=== PATIENT | female | born 1980 | race Caucasian/White ===

== ENCOUNTER 2022-07-20 18:43 | Emergency (ER) | payer BC ==
[2022-07-20] MEDS ORDERED: PROMETHAZINE 25 MG TABLET ONE (19:43)
[2022-07-20] MEDS ORDERED: CYCLOBENZAPRINE 10 MG TAB ONE (19:43)
[2022-07-20] MEDS ORDERED: FLUCONAZOLE 100 MG TAB ONE (19:43)
[2022-07-20] MEDS ORDERED: HYDROCODONE/APAP 10/325 TAB ONE (19:44)
[2022-07-20] MEDS ORDERED: IBUPROFEN 400 MG TAB ONE (19:44)
[2022-07-20 19:48] LABS: Specific Gravity 1.042 (1.005-1.030)
[2022-07-20 19:53] LABS: Specific Gravity > 1.030 (1.005-1.030); Urine Bacteria 20-50 /HPF (<20); Urine Bilirubin NEGATIVE (Negative); Urine Blood Trace (Negative); Urine Clarity Clear (Clear); Urine Color Light-Yellow (Yellow); Urine Glucose 4+ (Over) (Negative); Urine Protein TRACE (Negative); Urine RBC 21-50 /HPF (None Seen); Urine Urobilinogen Normal (Normal); Urine WBC Clump Occasional /HPF (None Seen)
--- NOTE | 2022-07-20 19:56 | RAD REPORT ---
EXAM DESCRIPTION: RAD - Hand Left 3 View - 07/20/2022 7:39 pm CLINICAL HISTORY: traumatic hand injury COMPARISON: No comparisons FINDINGS/IMPRESSION: Obliquely oriented fracture of the fourth metacarpal involving the diaphysis. T here is at most 1/4 shaft width of dorsal displacement.
--- NOTE | 2022-07-20 20:19 | RAD REPORT ---
EXAM DESCRIPTION: CT - Pelvis Wo Cont - 07/20/2022 8:02 pm CLINICAL HISTORY: pelvic pain from the fall COMPARISON: No comparisons FINDINGS: No pelvic or hip fractures identified. Both femoral heads are located. Mild degenerative c hanges are present at the sacroiliac joints. Facet hypertrophy is present L5-S1. No other focal degen erative changes are noted. Inguinal adenopathy is probably reactive. Normal appendix. Visualized mikie l, bladder, and adnexa is within normal limits for age. IMPRESSION: No pelvic or hip fracture identified. Inguinal adenopathy is likely reactive. Suggest clinical follow-up.
[2022-07-20] MEDS ORDERED: CEPHALEXIN 250 MG CAP ONE (20:39)
[2022-07-20 20:56] LABS: Hematocrit 40.1 % (36.0-45.0); Lymphocytes % 27.4 % (15.3-44.8); MCV 86.2 fL (80-100); MPV 7.5 fL (7.6-11.3); RBC Red Blood Cell Count 4.65 M/uL (3.86-4.86)
[2022-07-20 21:13] LABS: Albumin 3.1 g/dL (3.4-5.0); Bilirubin Total 0.3 mg/dL (0.2-1.0); Potassium 3.5 mEq/L (3.5-5.1); Protein, Total 6.9 g/dL (6.4-8.2)
--- NOTE | 2022-07-20 21:43 | ER ---
Nurse's Notes [facility] Name: Peri Crisostomo Age: 42 yrs Sex: Female : 1980 Arrival Date: 07/20/2022 Time: 18:43 Bed 7 Private MD: Diagnosis: New onset diabetes, diabetes mellitus type 2 uncontrolled, hyperglycemia, urinary tract infection, acute cystitis, acute vaginal and labial candidiasis, acute diabetic associated complications,;Left hand fourth metacarpal oblique fracture, acute fall, contusion pelvic bones, contusion buttocks, contusion left hand, Presentation: 07/20 19:25 Chief complaint: Patient states: c/o vaginal pain and left hand pain. pt denies vaginal as6 bleed and discharge. pt reports falling x2 in the past week. Coronavirus screen: At this time, the client does not indicate any symptoms associated with coronavirus-19. Ebola Screen: No symptoms or risks identified at this time. Initial Sepsis Screen: Does the patient meet any 2 criteria? No. Patient's initial sepsis screen is negative. Does the patient have a suspected source of infection? No. Patient's initial sepsis screen is negative. Risk Assessment: Do you want to hurt yourself or someone else? Patient reports no desire to harm self or others. Onset of symptoms was July 16, 2022. 19:25 Acuity: [place] 3 as6 19:25 Method Of Arrival: Ambulatory as6 Triage Assessment: 19:24 General: Appears uncomfortable, obese, Behavior is cooperative, crying. Pain: Complains as6 of pain in right labia majora, left labia majora, right labia minora, left labia minora and left hand. EENT: No deficits noted. No signs and/or symptoms were reported regarding the EENT system. Neuro: Level of Consciousness is awake, alert, obeys commands, Oriented to person, place, time, situation. Cardiovascular: Capillary refill < 3 seconds Patient's skin is warm and dry. Respiratory: Respiratory effort is even, unlabored, Respiratory pattern is regular, symmetrical. GI: No deficits noted. No signs and/or symptoms were reported involving the gastrointestinal system. : Reports burning with urination. 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 - Social history:: Smoking status: Patient reports the use of cigarette tobacco products, smokes one-half pack cigarettes per day. - Family history:: not pertinent. Screenin:53 [facility] ED Fall Risk Assessment (Adult) Score/Fall Risk Level 0 - 2 = Low Risk. Abuse as6 screen: Denies threats or abuse. Denies injuries from another. Nutritional screening: No deficits noted. Tuberculosis screening: No symptoms or risk factors identified. Assessment: 20:47 Reassessment: Patient appears in no apparent distress at this time. Patient states as6 feeling better. Patient states symptoms have improved. Vital Signs: 19:25 BP 153 / 79; Pulse 86; Resp 18 S; Temp 98(O); Pulse Ox 98% on R/A; Weight 92.99 kg (R); as6 Height 5 ft. 1 in. (R); Pain 8/10; 20:47 BP 145 / 85; Pulse 66; Resp 18 S; Pulse Ox 99% on R/A; as6 21:54 BP 133 / 106; Pulse 79; Resp 18 S; Pulse Ox 100% on R/A; as6 19:25 Body Mass Index 38.73 (92.99 kg, 154.94 cm) as6 19:25 Pain Scale: Adult as6 ED Course: 18:46 Patient arrived in ED. mr 19:03 Bang Lundberg MD is Attending Physician. sp4 19:13 Milton Cedeño, JAYCOB is Primary Nurse. as6 19:24 Arm band placed on. as6 19:28 Triage completed. as6 19:41 Hand Left 3 View XRAY In Process Unspecified. EDMS 19:41 PREGU Sent. as6 19:41 Urinalysis W/Microscopic Sent. as6 20:04 CT Pelvis wo Cont In Process Unspecified. EDMS 20:47 Inserted saline lock: 20 gauge in right antecubital area, using aseptic technique. as6 Blood collected. 21:41 Kobe French MD is Referral Physician. sp4 21:53 Bed in low position. Call light in reach. Side rails up X2. as6 21:53 No provider procedures requiring assistance completed. as6 22:03 IV discontinued, intact, bleeding controlled, No redness/swelling at site. Pressure as6 dressing applied. 22:04 Orthoglass splint: Volar splint applied on left arm. as6 Administered Medications: 19:41 Drug: [place] PO 10 mg-325 mg 1 tabs Route: PO; as6 21:53 Follow up: Response: No adverse reaction as6 19:41 Drug: Cyclobenzaprine PO 10 mg Route: PO; as6 21:53 Follow up: Response: No adverse reaction as6 19:41 Drug: Ibuprofen PO 800 mg Route: PO; as6 21:53 Follow up: Response: No adverse reaction as6 19:41 Drug: Promethazine PO 25 mg Route: PO; as6 21:52 Follow up: Response: No adverse reaction as6 19:41 Drug: Fluconazole PO 200 mg Route: PO; as6 21:52 Follow up: Response: No adverse reaction as6 20:47 Drug: Cephalexin PO 500 mg Route: PO; as6 21:52 Follow up: Response: No adverse reaction as6 Medication: 21:53 VIS not applicable for this client. as6 Outcome: 21:43 Discharge ordered by . sp4 21:54 Discharged to home ambulatory, with significant other. as6 21:54 Condition: stable 22:03 Discharge instructions given to patient, Instructed on discharge instructions, follow as6 up and referral plans. medication usage, Demonstrated understanding of instructions, follow-up care, medications, splint care, Prescriptions given X 5 22:04 Patient left the ED. as6 Signatures: Dispatcher [employer] Smita Aldrich Ashby, RN RN as6 Bang Lundberg MD MD sp4
--- NOTE | 2022-07-20 21:44 | EDPHYS ---
Physician Documentation [facility] Name: Peri Crisostomo Age: 42 yrs Sex: Female : 1980 Arrival Date: 07/20/2022 Time: 18:43 Bed 7 Private MD: ED Physician Bang Lundberg HPI: 07/20 19:03 This 42 yrs old Other Female presents to ER via Unassigned with complaints of Vaginal sp4 Pain, Fall Injury, Hand Pain. 19:11 42-year-old female presents with complaint of pain in the perineum and groin after her sp4 fall 5 days ago at work. Patient states she fell backwards via slipping on a wet floor and this has created pain in the groin and perineum. Patient states she landed on her buttock. Patient additionally states that she has sustained injury to the left hand and now left hand is swollen and painful. Patient has history of depression and anxiety. Patient is allergic to penicillin. Patient takes home medications. Celexa and propranolol for depression and anxiety.. 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 - Social history:: Smoking status: Patient reports the use of cigarette tobacco products, smokes one-half pack cigarettes per day. - Family history:: not pertinent. ROS: 19:11 Constitutional: Negative for fever, chills, and weight loss, Eyes: Negative for injury, sp4 pain, redness, and discharge, ENT: Negative for injury, pain, and discharge, Neck: Negative for injury, pain, and swelling, Cardiovascular: Negative for chest pain, palpitations, and edema, Respiratory: Negative for shortness of breath, cough, wheezing, and pleuritic chest pain, Abdomen/GI: Negative for abdominal pain, nausea, vomiting, diarrhea, and constipation, Back: Negative for injury and pain, : Negative for bleeding, discharge, and swelling, positive for perineal pain after a fall and associated pain in the groin MS/Extremity: Negative for deformity, positive for left hand pain and swelling. Positive for pain in the pelvis after a fall Skin: Negative for injury, rash, and discoloration, Neuro: Negative for headache, weakness, numbness, tingling, and seizure, Psych: Negative for depression, anxiety, Allergy/Immunology: Negative for hives, rash, and allergies Endocrine: Negative for neck swelling, polydipsia, polyuria, polyphagia, and weight changes Hematologic/Lymphatic: Negative for swollen nodes, abnormal bleeding, and unusual bruising Exam: 19:11 Constitutional: This is a well developed, well nourished patient who is awake, alert, sp4 and in no acute distress. Head/Face: Normocephalic, atraumatic. Eyes: Pupils equal round and reactive to light, extra-ocular motions intact. Lids and lashes normal. Conjunctiva and sclera are not injected. Cornea within normal limits. Periorbital areas with no swelling, redness, or edema. ENT: Nares patent. No nasal discharge, no septal abnormalities noted. Tympanic membranes are normal and external auditory canals are clear. Oropharynx with no redness, swelling, or masses, exudates, or evidence of obstruction, uvula midline. Mucous membranes moist. Neck: Trachea midline, no thyromegaly or masses palpated, and no cervical lymphadenopathy. Supple, full range of motion without nuchal rigidity, or vertebral point tenderness. No Meningismus. Chest/axilla: Normal chest wall appearance and motion. Nontender with no deformity. No lesions are appreciated. Cardiovascular: Regular rate and rhythm with a normal S1 and S2. No gallops, murmurs, or rubs. Normal PMI, no JVD. No pulse deficits. Respiratory: Lungs have equal breath sounds bilaterally, clear to auscultation and percussion. No rales, rhonchi or wheezes noted. No increased work of breathing, no retractions or nasal flaring. Abdomen/GI: Soft, non-tender, with normal bowel sounds. No distension or tympany. No guarding or rebound. No evidence of tenderness throughout. Back: No spinal tenderness. No costovertebral tenderness. Skin: Warm, dry with normal turgor. Normal color with no rashes, no lesions, and no evidence of cellulitis. MS/ Extremity: Pulses equal, no cyanosis. Neurovascular intact. Full, normal range of motion. Left hand mild swelling, normal range of motion, normal cap refill, no deformity Neuro: Awake and alert, GCS 15, oriented to person, place, time, and situation. Cranial nerves II-XII grossly intact. Motor strength 5/5 in all extremities. Sensory grossly intact. Psych: Awake, alert, with orientation to person, place and time. Behavior, mood, and affect are within normal limits Vital Signs: 19:25 BP 153 / 79; Pulse 86; Resp 18 S; Temp 98(O); Pulse Ox 98% on R/A; Weight 92.99 kg (R); as6 Height 5 ft. 1 in. (R); Pain 8/10; 20:47 BP 145 / 85; Pulse 66; Resp 18 S; Pulse Ox 99% on R/A; as6 21:54 BP 133 / 106; Pulse 79; Resp 18 S; Pulse Ox 100% on R/A; as6 19:25 Body Mass Index 38.73 (92.99 kg, 154.94 cm) as6 19:25 Pain Scale: Adult as6 Procedures: 21:33 Splinting: Splint applied to left wrist, left hand and palmar aspect of left forearm sp4 using Orthoglass splint, sling, Left hand wrist and forearm ulnar gutter applied for left fourth metacarpal oblique fracture. applied by myself. post reduction film - Nondisplaced fracture repeat x-ray not indicated, Examined by me, post splint application: neurovascular intact, 2+ distal pulses palpable, brisk capillary refill noted, Normal neurovascular status after the splint. Patient tolerated well, Left arm sling will be applied. MDM: 19:10 Patient medically screened. sp4 21:33 Differential diagnosis: nonspecific abdominal pain, urinary tract infection, vaginosis. sp4 Data reviewed: vital signs, nurses notes, lab test result(s), CBC, electrolytes, hepatic panel, radiologic studies, CT scan, plain films. Consideration of Admission/Observation Escalation of care including admission/observation considered. ED course: In order of priority #1 patient presents with signs of vaginal candidiasis and UTI with glucose in the urine,. Blood sugar and chemistry panel suggest new onset diabetes not previously diagnosed. Without nephropathy. Patient will be advised on diabetic diet, and prescribed metformin and glipizide for daily blood sugar management. Will advise blood sugar checks every day every morning/every evening. Patient will require follow-up with primary MD for diabetes management also yearly ophthalmologic dilated exam. Patient advised to consume strict diabetic diet. ED course: Secondary problem includes acute onset urinary tract infection based on urinalysis also based on vaginal exam there is pelvic/vaginal labial candidiasis associated with diabetes. Patient will be prescribed Keflex and Diflucan for management of UTI and candidiasis. ED course: Secondary problem also includes acute contusion of pelvic area after the fall 6 days ago and also a left hand contusion and left fourth metacarpal oblique fracture of the left fourth metacarpal shaft. Left hand forearm splint was applied via ulnar gutter fiberglass splint and arm sling provided, patient will be referred to orthopedist within the next 7 to 14 days for repeat x-ray and full cast . ED course: . 07/20 19:23 Order name: Urinalysis W/Microscopic; Complete Time: 20:11 sp4 07/20 19:29 Order name: PREGU; Complete Time: 20:11 as6 07/20 20:07 Order name: Urine Culture EDMS 07/20 20:14 Order name: CBC with Diff; Complete Time: 21:04 sp4 07/20 20:14 Order name: CMP; Complete Time: 21:14 sp4 07/20 20:57 Order name: Glucose, Ancillary Testing; Complete Time: 21:02 EDMS 07/20 19:10 Order name: CT Pelvis wo Cont; Complete Time: 20:36 sp4 07/20 19:10 Order name: Hand Left 3 View XRAY; Complete Time: 20:11 sp4 07/20 20:11 Order name: Accucheck Blood Glucose; Complete Time: 20:47 sp4 Administered Medications: 19:41 Drug: [place] PO 10 mg-325 mg 1 tabs Route: PO; as6 21:53 Follow up: Response: No adverse reaction as6 19:41 Drug: Cyclobenzaprine PO 10 mg Route: PO; as6 21:53 Follow up: Response: No adverse reaction as6 19:41 Drug: Ibuprofen PO 800 mg Route: PO; as6 21:53 Follow up: Response: No adverse reaction as6 19:41 Drug: Promethazine PO 25 mg Route: PO; as6 21:52 Follow up: Response: No adverse reaction as6 19:41 Drug: Fluconazole PO 200 mg Route: PO; as6 21:52 Follow up: Response: No adverse reaction as6 20:47 Drug: Cephalexin PO 500 mg Route: PO; as6 21:52 Follow up: Response: No adverse reaction as6 Disposition Summary: 07/20/22 21:43 Discharge Ordered Location: Home sp4 Problem: new sp4 Symptoms: have improved sp4 Condition: Stable sp4 Diagnosis - New onset diabetes, diabetes mellitus type 2 uncontrolled, hyperglycemia, urinary sp4 tract infection, acute cystitis, acute vaginal and labial candidiasis, acute diabetic associated complications, - Left hand fourth metacarpal oblique fracture, acute fall, contusion pelvic bones, sp4 contusion buttocks, contusion left hand, Followup: sp4 - With: Kobe French MD - When: 7 - 10 days - Reason: Recheck today's complaints Discharge Instructions: - Discharge Summary Sheet sp4 - Hand Contusion sp4 - Diabetes Mellitus Basics sp4 Forms: - Thank You Letter sp4 - Antibiotic Education sp4 Prescriptions: - Cephalexin 500 mg Oral Capsule - take 1 capsule by ORAL route every 12 hours for 10 days; 20 capsule; Refills: sp4 0, Product Selection Permitted - Fluconazole 200 mg Oral Tablet - take 1 tablet by ORAL route once daily; 10 tablet; Refills: 0, Product sp4 Selection Permitted - Glipizide 5 mg Oral Tablet - take 1 tablet by ORAL route once daily before a meal; 30 tablet; Refills: 0, sp4 Product Selection Permitted - Metformin 1,000 mg Oral Tablet - take 1 tablet by ORAL route every 12 hours with morning and evening meals; 60 sp4 tablet; Refills: 0, Product Selection Permitted - Tramadol 50 mg Oral Tablet - take 1 tablet by ORAL route every 8 hours as needed; 30 tablet; Refills: 0, sp4 Product Selection Permitted Signatures: Dispatcher [employer] Milton Brown RN RN as6 Bang Lundberg MD MD sp4
[2022-07-20 22:36] VITALS: TEMP 98
[2022-07-20 22:39] VITALS: BP 133/106; O2SAT 100
== END 2022-07-20 22:04 | disposition home or self-care (01) ==
LOC: ER 18:43
PROC: 2W3DX1Z Immobilization of Left Lower Arm using Splint (ICD-10-PCS; principal; 2022-07-20)
DX: S62.395A Other fracture of fourth metacarpal bone, left hand, initial encounter for closed fracture (principal); S30.0XXA Contusion of lower back and pelvis, initial encounter; S60.222A Contusion of left hand, initial encounter; W19.XXXA Unspecified fall, initial encounter; E11.65 Type 2 diabetes mellitus with hyperglycemia; N39.0 Urinary tract infection, site not specified; B37.31 Acute candidiasis of vulva and vagina; F17.210 Nicotine dependence, cigarettes, uncomplicated; Z88.0 Allergy status to penicillin
CPT/HCPCS: 87088; 85025; 81001; 87086; 36415; 81025; 82947; 80053; 72192; 73130; 99284; 29125; Q0169

== ENCOUNTER 2022-09-11 18:25 | Observation (INO) | payer BC ==
--- NOTE | 2022-09-11 19:59 | ER ---
Nurse's Notes [facility] Name: Peri Crisostomo Age: 42 yrs Sex: Female : 1980 Arrival Date: 09/11/2022 Time: 18:25 Bed 14 Private MD: Diagnosis: Left Breast Abscess Presentation: 09/11 18:36 Chief complaint: Patient states: boil under left breast. Patient states that she cm10 noticed it a few days ago. Denies fevers. Coronavirus screen: Vaccine status: Patient reports being unvaccinated. Client denies travel out of the [place] in the last 14 days. At this time, the client does not indicate any symptoms associated with coronavirus-19. Ebola Screen: No symptoms or risks identified at this time. Initial Sepsis Screen: Does the patient meet any 2 criteria? No. Patient's initial sepsis screen is negative. Does the patient have a suspected source of infection? Yes: Skin breakdown/wound. Risk Assessment: Do you want to hurt yourself or someone else? Patient reports no desire to harm self or others. Onset of symptoms is unknown. 18:36 Method Of Arrival: Ambulatory cm10 18:36 Acuity: [place] 4 cm10 Triage Assessment: 18:39 General: Appears in no apparent distress. Behavior is calm, cooperative. Neuro: No cm10 deficits noted. Level of Consciousness is awake, alert, Oriented to person, place, time, situation. Respiratory: No deficits noted. Airway is patent Respiratory effort is even, unlabored, Respiratory pattern is regular, symmetrical. Historical: - Allergies: 18:38 PENICILLINS; cm10 - PMHx: 18:38 Anxiety; cm10 - PSHx: 18:38 wisdom teeth; cm10 - Immunization history:: Adult Immunizations unknown. - Social history:: Smoking status: Patient reports the use of cigarette tobacco products, denies chronic smoking, but will smoke occasionally. Screenin:41 [facility] ED Fall Risk Assessment (Adult) Score/Fall Risk Level 0 - 2 = Low Risk ll1 Oriented to surroundings, Maintained a safe environment, Educated pt \T\ family on fall prevention, incl call for assistance when getting out of bed, Hourly rounding (assess needs \T\ fall precautionary measures) done. Abuse screen: Denies threats or abuse. Nutritional screening: No deficits noted. Tuberculosis screening: No symptoms or risk factors identified. Assessment: 18:41 Reassessment: No changes from previously documented assessment. Patient and/or family ll1 updated on plan of care and expected duration. Pain level reassessed. Patient is alert, oriented x 3, equal unlabored respirations, skin warm/dry/pink. 20:00 Pain: Complains of pain in left breast. Neuro: No deficits noted. Level of pf1 Consciousness is awake, alert, obeys commands, Oriented to person, place, time, situation. Cardiovascular: No deficits noted. Capillary refill < 3 seconds Patient's skin is warm and dry. Respiratory: No deficits noted. Airway is patent Respiratory effort is even, unlabored, Respiratory pattern is regular, symmetrical, Breath sounds are clear bilaterally. GI: No deficits noted. No signs and/or symptoms were reported involving the gastrointestinal system. Abdomen is round non-distended. : No deficits noted. No signs and/or symptoms were reported regarding the genitourinary system. EENT: No deficits noted. No signs and/or symptoms were reported regarding the EENT system. Derm: Abscess located on left breast is red. 20:00 General: General: Appears in no apparent distress. comfortable, well groomed, well pf1 developed, Behavior is calm, cooperative, appropriate for age, quiet. 21:00 Reassessment: Patient appears in no apparent distress at this time. Patient and/or pf1 family updated on plan of care and expected duration. Pain level reassessed. Patient is alert, oriented x 3, equal unlabored respirations, skin warm/dry/pink. Patient states symptoms have not improved. 22:00 Reassessment: Patient appears in no apparent distress at this time. Patient and/or pf1 family updated on plan of care and expected duration. Pain level reassessed. Patient is alert, oriented x 3, equal unlabored respirations, skin warm/dry/pink. Patient states symptoms have improved. Vital Signs: 18:36 BP 131 / 107; Pulse 90; Resp 16; Temp 97.9; Pulse Ox 97% on R/A; Weight 90.72 kg; cm10 Height 5 ft. 1 in. ; Pain 2/10; 21:00 BP 114 / 86; Pulse 82; Resp 18; Pulse Ox 99% on R/A; pf1 22:00 BP 121 / 67; Pulse 76; Resp 18; Temp 97.8; Pulse Ox 98% on R/A; Pain 4/10; pf1 18:36 Body Mass Index 37.79 (90.72 kg, 154.94 cm) cm10 18:36 Pain Scale: Adult cm10 22:00 Pain Scale: Adult pf1 ED Course: 18:29 Patient arrived in ED. mr 18:38 Triage completed. cm10 18:39 Arm band placed on. cm10 18:40 Patient placed in an exam room, on a stretcher. ll1 18:41 Patient has correct armband on for positive identification. Bed in low position. Call ll1 light in reach. Cardiac monitoring not applicable on this patient. 18:47 Raza Oshea PA is PHCP. jmm 18:48 Toribio Christian MD is Attending Physician. jmm 19:58 Francisco Zuleta MD is Hospitalizing Provider. jmm 20:53 Initial lab(s) drawn, by me, sent to lab. First set of blood cultures drawn by ED staff.jw7 20:56 Inserted saline lock: 22 gauge in right hand, using aseptic technique. Missed jw7 attempt(s): 20 gauge in right antecubital area. Bleeding controlled, band aid applied, catheter tip intact. 20:57 Lactate w/ 2H reflex if indic. Sent. jw7 20:57 CMP Sent. jw7 20:57 CBC with Diff Sent. jw7 21:33 Inserted saline lock: 22 gauge in left antecubital area, using aseptic technique. vc1 22:03 Blood Culture Adult (2) Sent. pf1 22:15 No provider procedures requiring assistance completed. pf1 22:16 Patient admitted, IV remains in place. pf1 Administered Medications: 22:02 Drug: Ondansetron IVP 4 mg Route: IVP; Site: right hand; pf1 22:16 Follow up: Response: No adverse reaction; Marked relief of symptoms pf1 22:03 Drug: vancoMYCIN IVPB 1 grams Route: IVPB; Infused Over: 2 hrs; Site: right hand; pf1 22:16 Follow up: Response: No adverse reaction; Marked relief of symptoms; IV Status: pf1 Infusion continued upon admission 22:03 Drug: morphine IVP or IV 2 mg Route: IVP; Infused Over: 4 mins; Site: right hand; pf1 22:16 Follow up: Response: No adverse reaction; Marked relief of symptoms; Pain is decreased; pf1 RASS: Alert and Calm (0) Medication: 18:41 VIS not applicable for this client. ll1 Outcome: 19:58 Decision to Hospitalize by Provider. barbra 22:16 Admitted to Med/surg via wheelchair, room 212, with chart, Report called to JAYCOB Molina pf1 22:16 Condition: stable 22:16 Instructed on the need for admit, Demonstrated understanding of instructions. 22:16 Patient left the ED. pf1 Signatures: Raza Oshea PA PA jmm James, Smita BonillaYonis, RN RN ll1 Kiki Juarez RN RN vc1 Mariana Milian jw7 Richa Lewis RN RN pf1 Elsie Zuleta RN RN cm10 Corrections: (The following items were deleted from the chart) 22:16 22:15 Admitted to Med/surg via wheelchair, pf1 pf1 09/12 02:44 02:42 General: pf1 pf1 02:45 09/11 20:00 General: Appears in no apparent distress. comfortable, well groomed, well pf1 developed, Behavior is calm, cooperative, appropriate for age, quiet, General: Appears in no apparent distress. comfortable, well groomed, well developed, Behavior is calm, cooperative, appropriate for age, quiet, pf1
--- NOTE | 2022-09-11 19:59 | EDPHYS ---
Physician Documentation [facility] Name: Peri Crisostomo Age: 42 yrs Sex: Female : 1980 Arrival Date: 09/11/2022 Time: 18:25 Bed 14 Private MD: ED Physician Toribio Christian HPI: 09/11 18:56 This 42 yrs old Female presents to ER via Ambulatory with complaints of Breast Problem. jmm 18:56 The patient presents with an abscess of the left breast. Onset: The symptoms/episode jmm began/occurred gradually, 3 day(s) ago. Possible cause(s): unknown. Associated signs and symptoms: Pertinent positives: discharge, drainage, erythema, Pertinent negatives: fever. Modifying factors: the symptoms are alleviated by nothing, the symptoms are aggravated by nothing. This is a 42 year old female with a history of anxiety that presents to the ED with complaints of pain to her left breast with drainage. Denies fever, chills. . Historical: - Allergies: 18:38 PENICILLINS; cm10 - PMHx: 18:38 Anxiety; cm10 - PSHx: 18:38 wisdom teeth; cm10 - Immunization history:: Adult Immunizations unknown. - Social history:: Smoking status: Patient reports the use of cigarette tobacco products, denies chronic smoking, but will smoke occasionally. ROS: 18:56 Constitutional: Negative for fever, chills, and weight loss, Cardiovascular: Negative jmm for chest pain, palpitations, and edema, Respiratory: Negative for shortness of breath, cough, wheezing, and pleuritic chest pain. 18:56 Skin: Positive for abscess. 18:56 All other systems are negative. Exam: 18:56 Constitutional: This is a well developed, well nourished patient who is awake, alert, jmm and in no acute distress. Head/Face: atraumatic. Eyes: EOMI, no conjunctival erythema appreciated ENT: Moist Mucus Membranes Neck: Trachea midline, Supple Chest/axilla: Normal chest wall appearance and motion. Cardiovascular: Regular rate and rhythm. No edema appreciated Respiratory: Normal respirations, no respiratory distress appreciated Abdomen/GI: Non distended Back: Normal ROM 18:56 MS/ Extremity: Moves all extremities, no obvious deformities appreciated, no edema noted to the lower extremities Neuro: Awake and alert Psych: Behavior is normal, Mood is normal, Patient is cooperative and pleasant 18:56 Skin: abscess, that is moderate sized, of the left breast. Vital Signs: 18:36 BP 131 / 107; Pulse 90; Resp 16; Temp 97.9; Pulse Ox 97% on R/A; Weight 90.72 kg; cm10 Height 5 ft. 1 in. ; Pain 2/10; 21:00 BP 114 / 86; Pulse 82; Resp 18; Pulse Ox 99% on R/A; pf1 22:00 BP 121 / 67; Pulse 76; Resp 18; Temp 97.8; Pulse Ox 98% on R/A; Pain 4/10; pf1 18:36 Body Mass Index 37.79 (90.72 kg, 154.94 cm) cm10 18:36 Pain Scale: Adult cm10 22:00 Pain Scale: Adult pf1 MDM: 18:56 Patient medically screened. [facility] 21:26 Differential diagnosis: abscess, cellulitis. Data reviewed: vital signs, nurses notes. [facility] Consideration of Admission/Observation Patient was admitted/placed on observation. Escalation of care including admission/observation considered. Management of patient was discussed with the following: Sound Technician Supervisor: Dr. Zuleta. Counseling: I had a detailed discussion with the patient and/or guardian regarding: the historical points, exam findings, and any diagnostic results supporting the discharge/admit diagnosis, lab results, the need for further work-up and treatment in the hospital. ED course: I discussed the patient with Dr. Zuleta who recommends that the patient also needs a biopsy. Patient has a preference to stay in the hospital for or I\T\D with biopsy. Dr. Zuleta excepted the patient to his service.. 09/11 19:56 Order name: CBC with Diff; Complete Time: 21:28 [facility] 09/11 19:56 Order name: CMP; Complete Time: 21:24 [facility] 09/11 19:56 Order name: Lactate w/ 2H reflex if indic.; Complete Time: 21:24 [facility] 09/11 19:57 Order name: Blood Culture Adult (2) [facility] 09/11 19:56 Order name: Saline Lock; Complete Time: 20:57 [facility] Administered Medications: 22:02 Drug: Ondansetron IVP 4 mg Route: IVP; Site: right hand; pf1 22:16 Follow up: Response: No adverse reaction; Marked relief of symptoms pf1 22:03 Drug: vancoMYCIN IVPB 1 grams Route: IVPB; Infused Over: 2 hrs; Site: right hand; pf1 22:16 Follow up: Response: No adverse reaction; Marked relief of symptoms; IV Status: pf1 Infusion continued upon admission 22:03 Drug: morphine IVP or IV 2 mg Route: IVP; Infused Over: 4 mins; Site: right hand; pf1 22:16 Follow up: Response: No adverse reaction; Marked relief of symptoms; Pain is decreased; pf1 RASS: Alert and Calm (0) Disposition: 09/12 10:01 Co-signature as Attending Physician, Toribio Christian MD I reviewed the patient's care rt provided by the Advanced Practice Provider and agree with the diagnosis and treatment plan. Disposition Summary: 09/11/22 19:58 Hospitalization Ordered Hospitalization Status: Observation [facility] Provider: Francisco Zuleta Location: Telemetry/MedSurg (observation) jm Condition: Stable jm Problem: new jmm Symptoms: are unchanged [facility] Bed/Room Type: Standard [facility] Room Assignment: 212(09/11/22 20:44) Diagnosis - Left Breast Abscess [facility] Forms: - Medication Reconciliation Form jmm - SBAR form [facility] Signatures: Dispatcher [employer] EDMS Raza Oshea PA PA jmm Garcia, Cindy, RN RN Toribio Christian MD MD rt Richa Lewis RN RN pf1 Elsie Zuleta RN RN cm10 Corrections: (The following items were deleted from the chart) 09/11 20:44 19:58 [facility] cg
[2022-09-11] MEDS ORDERED: ONDANSETRON 4 MG/2 ML VIAL IV PRN (20:01)
[2022-09-11] MEDS ORDERED: ACETAMINOPHEN 500 MG TAB PO PRN (20:01)
[2022-09-11] MEDS ORDERED: MORPHINE 2 MG/ML SYR IV PRN (20:01)
[2022-09-11] MEDS ORDERED: ONDANSETRON 4 MG/2 ML VIAL ONE (20:34)
[2022-09-11] MEDS ORDERED: MORPHINE 2 MG/ML SYR ONE (20:34)
[2022-09-11] MEDS ORDERED: VANCOMYCIN 1 GM/VIAL ONE (20:34)
[2022-09-11] MEDS ORDERED: NA CHLORIDE 0.9% 250 ML ONE (20:35)
[2022-09-11] MEDS ORDERED: VANCOMYCIN 1 GM in NA CHLORIDE 0.9% 250 ML IVPB SCH (21:00)
[2022-09-11 21:22] LABS: Albumin 3.3 g/dL (3.4-5.0); Bilirubin Total 0.3 mg/dL (0.2-1.0); Potassium 3.6 mEq/L (3.5-5.1); Protein, Total 7.2 g/dL (6.4-8.2)
[2022-09-11 21:26] LABS: Absolute Lymphocytes (CBC) 2.9 K/uL (0.7-4.9); Hematocrit 41.8 % (36.0-45.0); Lymphocytes % 27.8 % (15.3-44.8); MCV 86.9 fL (80-100); MPV 8.2 fL (7.6-11.3); RBC Red Blood Cell Count 4.81 M/uL (3.86-4.86)
[2022-09-11] MEDS ORDERED: VANCOMYCIN 1.5 GM in NA CHLORIDE 0.9% 500 ML IVPB SCH (22:00)
[2022-09-11 23:31] VITALS: BMI 40.2
[2022-09-11] MEDS: NA CHLORIDE 0.9% 1,000 ML IV SCH (23:36)
[2022-09-12 03:21] LABS: Absolute Lymphocytes (CBC) 2.4 K/uL (0.7-4.9); Hematocrit 42.3 % (36.0-45.0); Lymphocytes % 29.1 % (15.3-44.8); MPV 8.1 fL (7.6-11.3)
[2022-09-12 03:36] LABS: Potassium 3.8 mEq/L (3.5-5.1)
[2022-09-12] MEDS: NA CHLORIDE 0.9% 1,000 ML IV SCH ×2 (07:00→21:55)
[2022-09-12] MEDS: VANCOMYCIN 1.75 GM in NA CHLORIDE 0.9% 500 ML IVPB SCH ×2 (07:46→21:55)
[2022-09-12 10:44] LABS: Specific Gravity 1.015 (1.005-1.030)
[2022-09-12] MEDS ORDERED: propofoL 200 MG/20 ML VIAL IV ONE (13:36)
[2022-09-12] MEDS ORDERED: MIDAZOLAM HCL 2 MG/2 ML INJ ONE (13:37)
[2022-09-12] MEDS ORDERED: ONDANSETRON 4 MG/2 ML VIAL ONE (13:37)
[2022-09-12] MEDS ORDERED: LIDOCAINE 1% MPF 5 ML VIAL ONE (13:37)
[2022-09-12] MEDS ORDERED: FENTANYL CITR 100 MCG/2 ML ONE (13:37)
[2022-09-12] MEDS ORDERED: dexAMETHasone 4 MG/ML VIAL ONE (13:37)
[2022-09-12] MEDS ORDERED: KETOROLAC 30 MG/ML INJ ONE (13:38)
[2022-09-12] MEDS ORDERED: NA CHLORIDE 0.9% 1,000 ML ONE (13:45)
--- NOTE | 2022-09-12 15:09 | P.BOP ---
Preoperative diagnosis: left breast mastitis, cellulitis, abscess 4x4cm Postoperative diagnosis: same Primary procedure: 1. Incision and drainage of left breast complex abscess 4x4cm Secondary procedure: 2. incisional biopsy of left breast inflammatory mass Estimated blood loss: <10cc Specimen: pus, breast biopsy Findings: see dicta Anesthesia: General Complications: None Drain(s): Other (/ " nugauze) Transferred to: Recovery Room Condition: Good
[2022-09-12 20:33] VITALS: O2SAT 98
--- NOTE | 2022-09-12 20:47 | HP ---
Date of Admission: 09/11/2022 Reason For Service: Left breast abscess, cellulitis and necrotic wound. History Of Present Illness: This is a case of a 42-year-old patient who states she started with a pi mple on the left breast about a month ago, developed into bigger size and then after that in the last few days, developed into large area of erythema with purulent discharge coming from that area. She came to the ER overnight, admitted for IV antibiotics and control of pain and then scheduled for inci nito and drainage and a biopsy of the breast. The patient denies any trauma, denies any insect bites . Last mammogram was done several years ago. She does not even remember when it was done by Dr. Kristin hi and it was in [place] more than 5 years ago. She was advised the importance of doing mammograms r outinely. She was also advised the importance of primary doctor to do the proper workup for her age. She has history of anxiety. She was also advised the importance of colonoscopies. Allergies: PENICILLIN. Past Medical History: Anxiety. Past Surgical History: [employer] teeth. Social History: She does not smoke. She does not drink alcohol. Family History: No family history of breast cancer. Review of Systems: Pain on left breast. No fever. No nausea, no vomiting. No dysuria, hematuria, hematochezia, or randall samy. No recent traveling out of the country. No family member is sick at home. Physical Examination: General: Patient is awake and alert. Eyes: Pupils are equal and reactive. Anicteric. Neck: Supple. Chest: Clear. Heart: S1, S2. Abdomen: Soft and depressible. Nontender. Bowel sounds positive. Extremities: Good capillary refill. Peripheral pulses present. Pelvic: Deferred. Rectal: Deferred. Neurologic: Cranial nerves 2 through 12 grossly within normal limits. Breasts: On the left breast, the patient has an area of cellulitis about 5 x 6 cm. There is a necro tic center about 3 x 3 cm with purulent discharge coming out. There is fluctuance present. Assessment: Left breast mastitis, cellulitis and abscess. The patient will go for incision and dryandel ortega with benefits, alternatives, and risks including, but not limited to infection, bleeding, damage to adjacent structures, anesthesia complication, recurrence, [place], and even . She will require w ound care. I explained to the rug sizer about that and he will be doing dressing changes. We are go ing to teach him tomorrow how to do so. She was advised the importance of antibiotics and also advis ed the importance of gynecological and primary doctor routine evaluations on her. When this has impr alison, we might have to do the mammogram then to look for any other pathology. We might be sending a biopsy today of the abscess on the breast. SMITA/AZUCENA Voice ID: [id number]
[2022-09-13] MEDS: NA CHLORIDE 0.9% 1,000 ML IV SCH ×2 (03:00→09:28)
[2022-09-13 10:17] VITALS: BP 127/69; TEMP 97
[2022-09-13] MEDS: VANCOMYCIN 1.75 GM in NA CHLORIDE 0.9% 500 ML IVPB SCH (10:22)
--- NOTE | 2022-09-13 13:00 | P.DS ---
Admission Date: 09/11/22 Discharge Date: 09/13/22 Disposition: ROUTINE DISCHARGE Discharge Condition: GOOD Hospital Course: unremarkable Vital Signs/Physical Exam: Temp Pulse Resp BP Pulse Ox 97.0 F 68 16 127/69 99 09/13/22 08:00 09/13/22 08:00 09/13/22 08:00 09/13/22 08:00 09/13/22 08:00 General: Alert, In no apparent distress, Oriented x3, Cooperative HEENT: Normocephalic, PERRLA Neck: Supple Respiratory: Normal air movement Cardiovascular: Normal pulses Gastrointestinal: Soft and benign, No rebound, No guarding Musculoskeletal: No erythema, No tenderness, No warmth Integumentary: No rashes, No breakdown, No warmth, No cyanosis Neurological: Normal speech Laboratory Data at Discharge: WBC 8.40 thou/uL (4.3-10.9) 09/12/22 02:42 Hgb 13.9 g/dL (12.0-15.0) 09/12/22 02:42 Hct 42.3 % (36.0-45.0) 09/12/22 02:42 Plt Count 238 thou/uL (152-406) 09/12/22 02:42 Sodium 135 mEq/L (136-145) L 09/12/22 02:42 Potassium 3.8 mEq/L (3.5-5.1) 09/12/22 02:42 BUN 10 mg/dL (7-18) 09/12/22 02:42 Creatinine 0.58 mg/dL (0.55-1.02) 09/12/22 02:42 Glucose 261 mg/dL (74-106) H 09/12/22 02:42 Total Bilirubin 0.3 mg/dL (0.2-1.0) 09/11/22 20:48 AST 14 U/L (15-37) L 09/11/22 20:48 ALT 36 U/L (13-56) 09/11/22 20:48 Alkaline Phosphatase 119 U/L (45-117) H 09/11/22 20:48 Home Medications: Citalopram Hydrobromide [Citalopram HBr] 40 mg PO DAILY 09/11/22 Metformin HCl 500 mg PO BID 09/11/22 Propranolol [Inderal*] 10 mg PO SEECOM PRN 09/11/22 Physician Discharge Instructions: nugauze packing to breast wound daily Diet: Regular Activity: No lifting more than 10 lbs Followup: Francisco Zuleta MD [ACTIVE - CAN ADMIT] - 1 Week
--- NOTE | 2022-09-16 08:43 | OP ---
Date of Procedure: 09/15/2022 Surgeon: Francisco Zuleta MD Preoperative Diagnoses: Left breast mastitis, cellulitis, and abscess, 4 x 4 cm area. Postoperative Diagnoses: Left breast mastitis, cellulitis, and abscess, 4 x 4 cm area. Procedure: Incision and drainage of left breast complex abscess 4 x 4 cm with incisional biopsy of l eft breast inflammatory mass. Estimated Blood Loss: Less than 10 mL. Specimen: Pus, breast tissue. Anesthesia: General plus local. Findings: The patient has an inflammatory mass consistent with an abscess, not only the abscess was drained, but part of an inflammatory area and abscess as an incisional biopsy. Complications: None. Packing: Quarter of an inch Nu Gauze. Indication: This is the case of a 42-year-old patient with a recent inflammation for the last week o f the left breast, ulceration present, inflammatory mass present. She has no previous mammogram, but right now, she will not allow anybody near that area with a mammogram . We offered her dr baca of complex abscess and then after that, also sent a biopsy of that inflammatory region with be nefits, alternatives, and risks including, but not limited to infection, bleeding, damage to adjacent structures, anesthesia complication, nonhealing wound, [place], and even . She also understands thi s may not relieve any symptoms. She might need more than one surgical intervention. She will requir e also wound care and also follow up on her biopsy. This does not substitute the former mammogram th at will be done as soon as she allows us to do so. She signed a consent. The area of concern was ma rked by me and the patient in the holding room. Procedure In Detail: The patient was brought to the operating room, placed in supine position. Anes thesia was done without complication. Left breast was prepped and draped in the usual sterile fashio n. After that moment, we proceeded to do time-out followed by incision and drainage of a complex abs cess, multiple loculations explored and opened. Pus was removed. Culture and hemostasis obtained. This looked like an inflammatory area, so we proceeded to do an incisional biopsy of that inflammator y mass effected area and sent it to the pathologist. The area was irrigated, hemostasis was obtained , packed with quarter of an inch Nu Gauze. The patient was sent to recovery in stable condition. Sp onge count, instrument counts correct. HM/MODL Voice ID: [id number] Report ID: [id number]
== END 2022-09-13 13:55 | disposition home or self-care (01) ==
LOC: ER 18:25 → ERHOLD 20:00 → 2ND 21:02
PROVIDERS: ADMIT Surgery; ATTEND Surgery
PROC: 0H9U0ZZ Drainage of Left Breast, Open Approach (ICD-10-PCS; 2022-09-12)
PROC: 0HBU0ZX Excision of Left Breast, Open Approach, Diagnostic (ICD-10-PCS; principal; 2022-09-12 14:45)
DX: N61.1 Abscess of the breast and nipple (principal); F41.9 Anxiety disorder, unspecified; Z88.0 Allergy status to penicillin
CPT/HCPCS: 19101; 10060; 87040 ×2; 87070; 85025 ×2; 80048; 36415 ×2; 87205; 81025; 83605; 88304; 87075; 80202; 80053; 96375; 96374; 99285; J2704; J1100; J2001; J2250; J3010; J2270; J2405 ×2; J7050; J7040 ×2; J7030 ×4; G0378 ×4; 88305